=== PATIENT | female | born 1965 | race Caucasian/White ===

== ENCOUNTER 2018-08-23 13:32 | Emergency (ER) | payer OTHER ==
[~2018-08-23] VITALS: Ht 170.2 cm; Wt 65.8 kg
[2018-08-23] MEDS ORDERED: IBUPROFEN 600600 M1 PO (14:29)
[2018-08-23] MEDS ORDERED: NORCO 5-325 TA1 EACH PO (14:29)
[2018-08-23 15:35] VITALS: BP 148/97
== END 2018-08-23 15:37 | disposition home or self-care (01) ==
LOC: M.ERS 13:32
DX: S82.62XA Displaced fracture of lateral malleolus of left fibula, initial encounter for closed fracture (principal); W10.1XXA Fall (on)(from) sidewalk curb, initial encounter; Y93.89 Activity, other specified; Y92.89 Other specified places as the place of occurrence of the external cause; Y99.8 Other external cause status